=== PATIENT | female | born 1945 | race Caucasian/White ===

== ENCOUNTER 2019-03-26 05:35 | Emergency (ER) | payer MEDICARE, OTHER ==
[~2019-03-26] VITALS: Ht 165.1 cm; Wt 128.4 kg
--- OUTSIDE RECORDS SUMMARY | 2019-03-26 05:37 | XMS REPORT ---
Author Author Tito Last Organization [employer] Address Unknown Phone Unavailable Care Team Providers Care Stone Gluer Name Role Phone Tito Last CP Unavailable Allergies No Known Allergies Problems Problem Type Condition Code Onset Dates Condition Status Problem Acute serous otitis media, left ear H65.02 Active Problem Conductive hearing loss, bilateral H90.0 Active Problem Hearing Loss - Mixed H90.8 Active Problem Hoarseness R49.8 Active Problem Allergic rhinitis, seasonal J30.2 Active Problem Impacted cerumen, left ear H61.22 Active Problem Hearing loss - Sensorineural Bilateral H90.3 Active Problem Impacted cerumen, bilateral H61.23 Active Problem Otalgia, bilateral H92.03 Active Problem Eustachian tube dysfunction H69.83 Active Problem Hearing loss - Sensorineural Asymmetrical H90.5 Active Problem Otitis media - Acute serous * 381.01 Active Problem Vocal cord paralysis J38.00 Active Problem Rheumatoid arthritis 714.0 Active Problem GERD K21.9 Active Problem Eustachian tube dysfunction * 381.8 Active Problem Sinusitis - Chronic J32.8 Active Problem 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
--- OUTSIDE RECORDS SUMMARY | 2019-03-26 05:37 | XMS REPORT | Clinical Summary ---
Author Author Tyler Quaker Organization [facility] Address Unknown Phone Unavailable Care Team Providers Care Hat Cutter Name Role Phone Asked, No Pcp PCP Unavailable Allergies Comments Active Allergy Reactions Severity Noted Date Penicillins 04/22/2016 Medications Not on file Active Problems Not on file Social History Date Tobacco Use Types Packs/Day Years Used Never Assessed Sex Assigned at Date Recorded Not on file Industry Job Start Date Occupation Not on file Not on file Not on file Travel End Travel History Travel Start No recent travel history available. Last Filed Vital Signs Not on file Plan of Treatment Health Maintenance Due Date Last Done Comments BREAST CANCER SCREENING 12/27/1997 COLONOSCOPY SCREENING 12/27/1997 SHINGLES VACCINES (#1) 12/27/1997 65+ PNEUMOCOCCAL VACCINE 12/27/2012 (1 of 2 - PCV13) INFLUENZA VACCINE 05/03/2019 Results Not on fileafter 03/25/2018 Insurance Type Payer Benefit Subscriber ID Effective Phone Address Plan / Dates Group HMO AETNA AETNA xxxxxxxxxx 2001-P HMO,POS,EP resent O, [place] Medicare MEDICARE MEDICARE xxxxxxxxxx 2012-P [place], PART A AND resent [place] B Advance Directives Patient has advance care planning documents on file. For more information, tea mclean contact: Tyler Kirkpatrick [address] [place] [address]
--- OUTSIDE RECORDS SUMMARY | 2019-03-26 05:37 | XMS REPORT ---
Author Author Tito Last Organization [employer] Address Unknown Phone Unavailable Care Team Providers Care Cigarette Seller Name Role Phone Tito Last Unavailable Allergies, Adverse Reactions, Alerts Substance Reaction Event Type Penicillin Info Not Available Drug Allergy Problems Problem Type Condition Code Onset Dates Condition Status Problem Sinusitis - Chronic J32.8 Active Problem Acute serous otitis media, left ear H65.02 Active Problem Postnasal drip R09.82 Active Problem Otalgia, bilateral H92.03 Active Assessment Allergic rhinitis, seasonal J30.2 Active Problem Eustachian tube dysfunction H69.83 Active Assessment Hearing loss - Sensorineural Bilateral H90.3 Active Problem Allergic rhinitis, seasonal J30.2 Active Problem Conductive hearing loss, bilateral H90.0 Active Problem Hearing Loss - Mixed H90.8 Active Problem Hearing loss - Sensorineural Bilateral H90.3 Active Problem Impacted cerumen, bilateral H61.23 Active Assessment Eustachian tube dysfunction H69.83 Active Problem Vocal cord paralysis J38.00 Active Assessment Otalgia, bilateral H92.03 Active Assessment Sinusitis - Chronic J32.8 Active Problem Eustachian tube dysfunction * 381.8 Active Problem Rheumatoid 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.81 Active Problem Hearing loss - Sensorineural Asymmetrical H90.5 Active Problem Rheumatoid arthritis 714.0 Active Problem Otitis media - Acute serous * 381.01 Active Problem GERD K21.9 Active Medications Medication Code System Code Instructions Start Date End Date Status Dosage ProAir HFA [facility] [address]-27 Active not defined Levocetirizine Dihydrochloride [facility] 51524566629 Active not defined Lisinopril [facility] 81371800692 Active not defined Dexilant NDC 0 Active not defined Singulair [facility] 37278479699 Active not defined Metoclopramide HCl [facility] [address]-19 Active not defined Leda NDC 0 Active not defined Atenolol [facility] 39188826825 Active not defined Crestor [facility] [address]-00 Active not defined Nisoldipine [facility] 0 Active not defined Xyzal [facility] [address]-58 Active not defined Pulmicort Flexhaler [facility] [address]-47 Active not defined PredniSONE [facility] [address]-77 Active not defined Plaquenil [facility] 34853092171 Active not defined Fluticasone Propionate [facility] [address]-34 Active not defined Symbicort [facility] 47503309966 Active not defined Imuran [facility] [address]-72 Active not defined Results No Known Results Summary Purpose [employer] Submission
--- OUTSIDE RECORDS SUMMARY | 2019-03-26 05:38 | XMS REPORT ---
Author Author Tito Last Organization [employer] Address Unknown Phone Unavailable Care Team Providers Care Automotive Refinisher Name Role Phone Tito Last Unavailable Allergies, Adverse Reactions, Alerts Substance Reaction Event Type Penicillin Info Not Available Drug Allergy Problems Problem Type Condition Code Onset Dates Condition Status Problem Sinusitis - Chronic J32.8 Active Assessment Hoarseness R49.8 Active Problem Postnasal drip R09.82 Active Assessment Hearing loss - Sensorineural Bilateral H90.3 Active Problem Acute serous otitis media, left ear H65.02 Active Problem Conductive hearing loss, bilateral H90.0 Active Problem Hearing Loss - Mixed H90.8 Active Problem Hoarseness R49.8 Active Problem Allergic rhinitis, seasonal J30.2 Active Assessment Impacted cerumen, left ear H61.22 Active Assessment Sinusitis - Chronic J32.8 Active Problem Impacted cerumen, left ear H61.22 Active Assessment Allergic rhinitis, seasonal J30.2 Active Problem Hearing loss - Sensorineural Bilateral H90.3 Active Problem Impacted cerumen, bilateral H61.23 Active Problem Otalgia, bilateral H92.03 Active Problem Eustachian tube dysfunction H69.83 Active Problem Hearing loss - Sensorineural Asymmetrical H90.5 Active Problem Otitis media - Acute serous * 381.01 Active Assessment Eustachian tube dysfunction H69.83 Active Problem Vocal cord paralysis J38.00 Active Problem Rheumatoid arthritis 714.0 Active Problem GERD K21.9 Active Problem Eustachian tube dysfunction * 381.8 Active Problem Rheumatoid 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.81 Active Medications Medication Code System Code Instructions Start Date End Date Status Dosage Leda NDC 0 Active not defined Atenolol [facility] [id number] Active not defined Nisoldipine NDC 0 Active not defined ProAir HFA [facility] [address]-56 Active not defined Dexilant NDC 0 Active not defined Plaquenil [facility] 73272371597 Active not defined Crestor [facility] [address]-36 Active not defined Levocetirizine Dihydrochloride [facility] 79328077272 Active not defined Pulmicort Flexhaler [facility] [address]-11 Active not defined Xyzal [facility] [address]-41 Active not defined Imuran [facility] [address]-16 Active not defined PredniSONE [facility] [address]-22 Active not defined Fluticasone Propionate [facility] [address]-11 Active not defined Symbicort [facility] 79268743787 Active not defined Singulair [facility] 57311221615 Active not defined Lisinopril [facility] 23904249770 Active not defined Metoclopramide HCl [facility] [address]-08 Active not defined Results No Known Results Summary Purpose [employer] Submission
--- NOTE | 2019-03-26 06:28 | Diagnostic Imaging Report ---
EXAMINATION: CXR 2 VIEW - HOPD INDICATION: Fell on right breast, right-sided rib pain COMPARISON: None FINDINGS: PA and lateral views TUBES and LINES: None. LUNGS: Lungs are diffusely hyperinflated. Chronic atelectasis/scarring in the base of the left lung. PLEURA: No pleural effusion or pneumothorax. HEART AND MEDIASTINUM: Moderate sized hiatal hernia. The aorta is tortuous. BONES AND SOFT TISSUES: Diffuse demineralization with mild degenerative changes of the spine. No displaced fracture. No focal osseous lesions. Soft tissues are unremarkable. UPPER ABDOMEN: No free air under the diaphragm. Cholecystectomy clips. IMPRESSION: No acute traumatic pathology by x-ray. Moderate sized hiatal hernia. Pulmonary hyperinflation suggestive of small airways disease. Signed by: Dr. Shanika Olvera MD on 03/26/2019 6:25 AM
== END 2019-03-26 06:38 | disposition home or self-care (01) ==
LOC: FSED 05:35
DX: R07.89 Other chest pain (principal); R06.00 Dyspnea, unspecified; W18.09XA Striking against other object with subsequent fall, initial encounter; Y92.008 Other place in unspecified non-institutional (private) residence as the place of occurrence of the external cause; I10 Essential (primary) hypertension; M06.9 Rheumatoid arthritis, unspecified
CPT/HCPCS: 71046; 93005; 99283

== ENCOUNTER → 2021-08-25 | Outpatient (CLI) | payer MEDICARE ==
[~2021-08-25] MED LIST: LEVSIN0.125 MG PO
== END ==
LOC: RAD 15:34
PROVIDERS: ATTEND Family Medicine
DX: L02.818 Cutaneous abscess of other sites (principal)

== ENCOUNTER 2021-09-26 15:20 | Emergency (ER) | payer MEDICARE ==
[~2021-09-26] VITALS: Ht 160 cm; Wt 115.2 kg
[2021-09-26 16:41] LABS: BASOPHILS % 0.5 % (0.0-1.0); EOSINOPHILS % 1.4 % (0.0-6.0); HEMATOCRIT 24.9 % (34.2-44.1); HEMOGLOBIN 7.2 g/dL (12.0-16.0); LYMPHOCYTES # (AUTO) 0.5 (1.0-3.2); LYMPHOCYTES % 25.7 % (18.0-39.1); MEAN CORPUSCULAR HEMOGLOBIN 25.3 pg (28-32); MEAN CORPUSCULAR HGB CONC 28.9 g/dL (31-35); MEAN CORPUSCULAR VOLUME 87.4 fL (81-99); MONOCYTES # (AUTO) 0.5 (0.2-0.8); MONOCYTES % 22.9 % (4.4-11.3); NEUTROPHILS % 49.5 % (38.7-80.0); PLATELET COUNT 111 x10e3/uL (140-360); RED BLOOD COUNT 2.85 x10e6/uL (3.6-5.1); RED CELL DISTRIBUTION WIDTH 16.3 % (11.7-14.4)
[2021-09-26 17:01] LABS: ALBUMIN 2.8 g/dL (3.5-5.0); ALBUMIN/GLOBULIN RATIO 0.9 (0.8-2.0); ALKALINE PHOSPHATASE 83 IU/L (40-150); ANION GAP 12.8 mmol/L (8-16); BLOOD UREA NITROGEN 9 mg/dL (7-26); BUN/CREATININE RATIO 14 (6-25); CALCIUM 8.2 mg/dL (8.4-10.2); CARBON DIOXIDE 22 mmol/L (22-29); CHLORIDE 104 mmol/L (98-107); CREATININE, SERUM 0.63 mg/dL (0.57-1.11); EST GLOMERULAR FILTRATION RATE 93 ML/MIN (60-); GLUCOSE 92 mg/dL (74-118); POTASSIUM 3.8 mmol/L (3.5-5.1); SODIUM 135 mmol/L (136-145)
[2021-09-26 17:05] LABS: ALANINE AMINOTRANSFERASE < 6 IU/L (0-55)
[2021-09-26 22:05] LABS: EOSINOPHILS % (MANUAL) 2 % (0-7); HYPOCHROMASIA MODERATE; LYMPHOCYTES % (MANUAL) 31 % (19-48); MONOCYTES % (MANUAL) 14 % (3.4-9.0); NEUTROPHILS % (MANUAL) 50 % (40-74); PLATELET ESTIMATE SLIGHTLY DECREASED; PLATELET MORPHOLOGY COMMENT NORMAL
== END 2021-09-26 19:29 | disposition home or self-care (01) ==
LOC: ER 17:20
DX: U07.1 COVID-19 (principal); R50.9 Fever, unspecified; R05.9 Cough, unspecified; I10 Essential (primary) hypertension; E78.5 Hyperlipidemia, unspecified; K21.9 Gastro-esophageal reflux disease without esophagitis; M06.9 Rheumatoid arthritis, unspecified; J45.909 Unspecified asthma, uncomplicated
CPT/HCPCS: 36415; 71045; 71260; 80053; 83880; 84484; 85025; 85379; 99284; U0002

== ENCOUNTER 2022-10-15 20:04 | Emergency (ER) | payer MEDICARE ==
[~2022-10-15] VITALS: Ht 162.6 cm; Wt 88.0 kg
[2022-10-15] MEDS ORDERED: ONDANSETRON HCL INJ 2MG/ML 2ML 2 MG/ML VIAL IV STA (20:52)
[2022-10-15] MEDS: SODIUM CHLORIDE 0.9% 1000ML 1,000 ML IV SCH ×2 (21:40→22:08)
[2022-10-15] MEDS ORDERED: ONDANSETRON HCL INJ 2MG/ML 2ML 2 MG/ML VIAL ONE (21:44)
[2022-10-15] MEDS ORDERED: SODIUM CHLORIDE 0.9% 1000ML 1,000 ML ONE ×2 (21:44→22:36)
[2022-10-15] MEDS ORDERED: KETOROLAC TROMETHAMINE 30 MG/ML VIAL IV STA (22:02)
[2022-10-15] MEDS ORDERED: KETOROLAC TROMETHAMINE 30 MG/ML VIAL ONE (22:17)
[2022-10-15] MEDS ORDERED: PROMETHAZINE HCL (IM) 25 MG/ML VIAL IM ONE (22:36)
[2022-10-15] MEDS ORDERED: IOPAMIDOL 370 MG/ML 100 ML INFUS..BTL INJ ONE (22:41)
[2022-10-15] MEDS ORDERED: PROMETHAZINE 25MG/ NS 50ML (IV) IV ONE (23:45)
[2022-10-15] MEDS ORDERED: SODIUM CHLORIDE 0.9% 1000ML 1,000 ML IV SCH (23:45)
[2022-10-16] MEDS ORDERED: KETOROLAC TROME10 MG PO (00:41)
[2022-10-16] MEDS ORDERED: PROMETHAZINE12.5 M1 PO (00:45)
[2022-10-16] MEDS ORDERED: FLOMAX0.4 MG PO (00:46)
[2022-10-16] MEDS ORDERED: CEFUROXIME500 MG PO (00:47)
[2022-10-16] MEDS ORDERED: CEFTRIAXONE 1 GM VIAL ONE (00:55)
[2022-10-16] MEDS ORDERED: TAMSULOSIN HCL 0.4 MG CAP ONE (00:55)
[2022-10-16 01:00] VITALS: BP 159/69
[2022-10-16] MEDS ORDERED: TAMSULOSIN HCL 0.4 MG CAP PO SCH (21:00)
== END 2022-10-16 01:00 | disposition home or self-care (01) ==
LOC: FSED 20:26
DX: R50.9 Fever, unspecified (principal); N13.2 Hydronephrosis with renal and ureteral calculous obstruction; R10.30 Lower abdominal pain, unspecified; R11.0 Nausea; K44.9 Diaphragmatic hernia without obstruction or gangrene; M06.9 Rheumatoid arthritis, unspecified; D84.9 Immunodeficiency, unspecified; I10 Essential (primary) hypertension; E78.5 Hyperlipidemia, unspecified
CPT/HCPCS: 74177; 80048; 80076; 81003; 85025; 87086; 96374; 96375; 99284; J0696; J1885; J2405; J2550; J7030; Q9967